=== PATIENT | male | born 1960 | race Caucasian/White ===

== ENCOUNTER → 2016-12-23 | Outpatient (CLI) | payer OTHER ==
--- NOTE | 2016-12-23 17:54 | CT ---
EXAMINATION TYPE: CT soft tissue neck w con DATE OF EXAM: 12/23/2016 5:42 PM COMPARISON: NONE HISTORY: Enlarged lymph nodes CT DLP: mGycm Automated exposure control for dose reduction was used. CONTRAST: Multiple axial sections were obtained from the level of the pulmonary arteries to the mid orbits with intravenous contrast. The contrast was Omnipaque 100 mL. FINDINGS: Submandibular salivary glands are symmetric. Parotid glands are symmetric. The epiglottis is normal. Tonsils are symmetric. Adenoids appear within normal limits. Subglottic trachea appears normal. There is mild mucosal thickening in the ethmoid and maxillary sinuses. There is normal contrast opacification of the carotid arteries and jugular veins. There are a few ekta ateral anterior triangle lymph nodes that measure up to 1 cm. I see no significant cervical adenopath y. There is moderate spondylosis in the cervical spine from C4 to C7 with spurring of the endplates. Vertebra have normal alignment. There is uncovertebral spurring and multilevel neural foraminal impin gement in the mid and lower cervical spine. There is evidence of multilevel spinal stenosis as a resu lt of the extensive spurring. IMPRESSION: Spondylotic changes in the cervical spine with neural foraminal stenosis and spinal sten osis. I see no significant cervical adenopathy. No mediastinal adenopathy seen. Mild maxillary and ethmoid sinusitis.
== END | disposition home or self-care (01) ==
LOC: RADCTMAIN 17:02
PROVIDERS: ATTEND Family Medicine
DX: R59.1 Generalized enlarged lymph nodes (principal)
CPT/HCPCS: 70491; Q9967

== ENCOUNTER → 2017-08-25 | Outpatient (CLI) | payer OTHER ==
--- NOTE | 2017-08-25 22:07 | MR ---
EXAMINATION TYPE: MR cervical spine wo con DATE OF EXAM: 08/25/2017 COMPARISON: 11/06/2009 MRI, 12/23/2016 CT soft tissue neck HISTORY: Neck pain, numbness/tingling in arms/hands TECHNIQUE: Multiplanar, multisequence images of the cervical spine were acquired. C2-C3: No evidence for degenerative disc disease. No disc bulge/herniation or protrusion. No Canal stenosis. Foramina are patent bilaterally. C3-C4: Moderate severe degenerative disc disease and facet arthropathy greater on the left. Mild bila teral foraminal encroachment greater on the left. No Canal stenosis no focal herniation. C4-C5: Severe degenerative disc disease with posterior cervical spondylosis. Disc protrusion capped b y spur results in moderate canal stenosis and bilateral foraminal encroachment. C5-C6: Severe degenerative disc disease with diffuse disc bulging capped by spur and spondylosis. Mod erate to severe canal stenosis and bilateral foraminal encroachment with facet arthropathy C6-C7: Severe degenerative disc disease. There is hypertrophic change of the facet left. No Canal dayday nosis. There appears to be asymmetric signal involving the left SI joint this level with poor definit ion of the cortical margin. Additionally there is asymmetric signal within the transverse process of the left C7. C7-T1: Moderate degenerative disc disease but no canal stenosis or foraminal encroachment. Cervical segments are intact. There is normal alignment. Cervical spinal cord is of normal signal. Craniovertebral junction relationships are within normal limits. IMPRESSION: 1. Severe multilevel degenerative disc disease with cervical spondylosis and disc bulging contributin g to multilevel canal stenosis and foraminal encroachment with the most marked findings at C4-C5 and C5-C6. 2. There is abnormal marrow signal involving the left facet at C6-C7 and left transverse process of C 7. Recommend post contrast images to exclude a marrow occupying process. Particularly if the patient has a history of malignancy.
== END | disposition home or self-care (01) ==
LOC: RADMRIMAIN 18:34
PROVIDERS: ATTEND Physician Assistant Medical
DX: M48.02 Spinal stenosis, cervical region (principal); M50.221 Other cervical disc displacement at C4-C5 level; M50.321 Other cervical disc degeneration at C4-C5 level; M47.812 Spondylosis without myelopathy or radiculopathy, cervical region; R93.7 Abnormal findings on diagnostic imaging of other parts of musculoskeletal system
CPT/HCPCS: 72141

== ENCOUNTER → 2017-10-21 | Outpatient (CLI) | payer OTHER ==
--- NOTE | 2017-10-22 07:16 | XR ---
EXAMINATION TYPE: XR cervical spine comp DATE OF EXAM: 10/21/2017 COMPARISON: NONE HISTORY: Pain TECHNIQUE: Four views are submitted. FINDINGS: The odontoid is intact. There are no compression deformities. The prevertebral soft tissue structur es are within normal limits. There is multilevel facet arthropathy and foraminal encroachment or can al levels. Severe degenerative disc disease at levels C3-T1. Posterior spondylosis could result in a degree of Canal stenosis alignment demonstrated level C7 only IMPRESSION: 1. Severe multilevel degenerative disc disease and facet arthropathy with bilateral foraminal encroac hment.
== END | disposition home or self-care (01) ==
LOC: RADXRYALE 16:42
DX: M50.03 Cervical disc disorder with myelopathy, cervicothoracic region (principal); M46.92 Unspecified inflammatory spondylopathy, cervical region
CPT/HCPCS: 72050

== ENCOUNTER → 2017-11-21 | Outpatient (CLI) | payer OTHER ==
--- NOTE | 2017-11-21 15:17 | XR ---
EXAMINATION TYPE: XR cervical spine limited DATE OF EXAM: 11/21/2017 TECHNIQUE: Frontal and lateral of the cervical spine are obtained. HISTORY: [id number] cerv fusion COMPARISON: None FINDINGS: The cervical spine is visualized in its entirety from C1 thru the top of T1 level, it is s atisfactory in alignment without evidence of acute fracture or dislocation. Anterior cervical fusion device and the C4-C6 vertebral bodies. Alignment is maintained. The pre-vertebral soft tissue appear s within normal limits. Multilevel facet arthropathy and uncovertebral hypertrophy are redemonstrate d. IMPRESSION: Maintained alignment of the cervical spine after anterior cervical fusion of the C4-6 saul tebral levels.
== END | disposition home or self-care (01) ==
LOC: RADXRYALE 14:55
DX: M43.22 Fusion of spine, cervical region (principal)
CPT/HCPCS: 72040

== ENCOUNTER → 2018-02-26 | Outpatient (CLI) | payer OTHER ==
--- NOTE | 2018-02-27 07:47 | XR ---
EXAMINATION TYPE: XR cervical spine limited DATE OF EXAM: 02/26/2018 TECHNIQUE: Frontal and lateral views of the cervical spine are obtained. HISTORY: [id number] spinal stenosis. Neck Surgery progress study COMPARISON: Cervical spine x-ray November 21, 2017 FINDINGS: There is persistent anterior fusion plate and artificial disc material C4-C6 level. Alignme nt is satisfactory and stable. Vertebral body heights and disc space heights above surgical levels ar e stable and satisfactory. There is suboptimal visualization below C6 vertebral body level. Preverteb ral soft tissue appears within normal limits. Lateral articulations C1-C2 level is satisfactory on fr ontal view. Overlying soft tissue is unremarkable. IMPRESSION: There is stable and satisfactory alignment C4-C6 level at site of surgery.
== END | disposition home or self-care (01) ==
LOC: RADXRYALE 15:49
DX: M48.02 Spinal stenosis, cervical region (principal); Z98.890 Other specified postprocedural states
CPT/HCPCS: 72040

== ENCOUNTER → 2018-05-20 | Outpatient (CLI) | payer OTHER ==
[2018-05-20 14:03] LABS: Blood Urea Nitrogen 16 mg/dL (9-20)
--- NOTE | 2018-05-20 14:46 | CT ---
EXAMINATION TYPE: CT brain wo/w con DATE OF EXAM: 05/20/2018 COMPARISON: None HISTORY: Brachial artery occlusion CT DLP: 2059.8 mGycm Automated exposure control for dose reduction was used. CONTRAST: CT scan of the head is performed without and with IV Contrast, patient injected with 100 mL of Isovue 300. FINDINGS: There is no abnormal enhancing mass or midline shift identified. The ventricles and sulci are within normal limits in size. Calvarium intact. There is a faint low attenuation in the white matter bilate rally. Changes of ethmoidal sinusitis noted. No midline shift or mass effect. No enhancing lesion. IMPRESSION: No acute process. Low-attenuation seen in the periventricular white matter bilaterally is nonspecific but likely the basis of remote ischemic white matter change. If symptoms persist consider MRI.
== END | disposition home or self-care (01) ==
LOC: RADCTMAIN 13:29
PROVIDERS: ATTEND Ophthalmology
DX: H34.231 Retinal artery branch occlusion, right eye (principal)
CPT/HCPCS: 82565; 84520; 70470; 36415; Q9967

== ENCOUNTER 2019-10-18 06:13 | Day surgery (SDC) | payer OTHER ==
[2019-10-14 16:20] VITALS: BMI 40.2
[~2019-10-18 06:13] MED LIST: LACTATED RINGERS 1,000 ML IV SCH; LIDOCAINE 1% 20 ML VIAL (10MG/ML) FOR IV START INTRADERMA PRN
[2019-10-18 06:51] VITALS: TEMP 97.1
[2019-10-18 06:55] LABS: Glucose,Whole Blood 133 mg/dL (75-99)
[2019-10-18] MEDS ORDERED: LIDOCAINE 1% INJ 10MG/ML (20 ML MDV) ONE (07:16)
[2019-10-18] MEDS ORDERED: PROPOFOL 10 MG/ML 20 ML VIAL IV ONE (07:16)
[2019-10-18 07:43] VITALS: RESP 16
--- NOTE | 2019-10-18 07:43 | P.PCN ---
Date of Procedure: 10/18/19 Description of Procedure: BRIEF HISTORY: Patient is a 59-year-old pleasant male scheduled for an elective colonoscopy as a part of follow-up of personal history of colon polyps. PROCEDURE PERFORMED: Colonoscopy with polypectomy. PREOPERATIVE DIAGNOSIS: There is no history of colon polyps, last colonoscopy 5 years ago. ESTIMATED BLOOD LOSS: Minimal. IV sedation per Anesthesia. PROCEDURE: After informed consent was obtained, the patient, was brought into the endoscopy unit. IV sedation was administered by Anesthesia under continuous monitoring. Digital rectal examination was normal. Initially the Olympus CF-190 flexible video colonoscope was then inserted in the rectum, gradually advanced into the cecum without any difficulty. Careful examination was performed as the scope was gradually being withdrawn. Ileocecal valve and the appendiceal orifice were visualized and appeared normal. Prep was excellent. Mucosa of the cecum, ascending colon, transverse colon, descending colon, sigmoid colon, and rectum appeared normal. A few scattered small diverticula noted in the sigmoid colon. Diminutive 2 mm transverse colon polyp removed with cold forcep polypectomy. Retroflexion was performed in the rectum and no lesions were seen. The patient tolerated the procedure well. IMPRESSION: Diminutive transverse colon polyp removed with cold forceps. Mild sigmoid diverticulosis. RECOMMENDATIONS: Findings of this examination were discussed with the pa and his son. Okay to resume diet. Okay to resume medications. Await pathology from pathology from polypectomy. Would recommend repeat colonoscopy in 5 years for personal history of colon polyps.
[2019-10-18 08:02] VITALS: BP 128/77; PULSE 72
== END 2019-10-18 08:21 | disposition home or self-care (01) ==
LOC: ORWHC2ENDO 06:13
PROVIDERS: ATTEND Internal Medicine
DX: Z12.11 Encounter for screening for malignant neoplasm of colon (principal); D12.3 Benign neoplasm of transverse colon; K57.30 Diverticulosis of large intestine without perforation or abscess without bleeding; Z86.010 Personal history of colon polyps; Z80.0 Family history of malignant neoplasm of digestive organs; E78.5 Hyperlipidemia, unspecified; G47.33 Obstructive sleep apnea (adult) (pediatric); J44.9 Chronic obstructive pulmonary disease, unspecified; F32.9 Major depressive disorder, single episode, unspecified; R55 Syncope and collapse; Z79.84 Long term (current) use of oral hypoglycemic drugs; Z79.899 Other long term (current) drug therapy; Z88.1 Allergy status to other antibiotic agents; Z87.891 Personal history of nicotine dependence; Z96.652 Presence of left artificial knee joint
CPT/HCPCS: 88305; 45380; J2001; J2704